=== PATIENT | male | born 2000 ===

== ENCOUNTER 2022-07-31 03:53 | Emergency (ER) | payer MEDICAID ==
[2022-07-31] MEDS ORDERED: Amoxicillin 500 MG Cap PO ONE (04:49)
== END 2022-07-31 05:08 | disposition home or self-care (01) ==
LOC: FB.ED 03:53
DX: J02.0 Streptococcal pharyngitis (principal); Z86.16 Personal history of COVID-19
CPT/HCPCS: 87651; 99283; A9270